=== PATIENT | female | born 1945 | race Caucasian/White ===

== ENCOUNTER 2018-10-06 12:47 | Emergency (ER) | payer OTHER, MEDICAID ==
[~2018-10-06] VITALS: Ht 157.5 cm; Wt 49.0 kg
[2018-10-06 13:03] LABS: URINE BILIRUBIN NEGATIVE (Negative); URINE BLOOD 3+ (Negative); URINE CLARITY CLEAR; URINE COLOR YELLOW; URINE GLUCOSE-RANDOM NEGATIVE (Negative); URINE KETONES NEGATIVE (Negative); URINE LEUKOCYTES-REFLEX 1+ (Negative); URINE PROTEIN 2+ (Negative); URINE SPECIFIC GRAVITY 1.025 (1.005-1.030); URINE UROBILINOGEN 0.2 E.U./dl (0.2-1.0)
[2018-10-06 13:04] LABS: URINE NITRITE-REFLEX POSITIVE (Negative)
[2018-10-06] MEDS ORDERED: PROTONIX40 M2 PO (13:09)
[2018-10-06] MEDS ORDERED: BENICAR20 MG PO (13:09)
[2018-10-06] MEDS ORDERED: TIZANIDINE HCL4 M1 PO (13:09)
[2018-10-06 13:10] LABS: BACTERIA-REFLEX 1-9 Few /HPF (None Seen); SQUAMOUS 0-3 Few /LPF (0-3); URINE RBC 0-2 Rare /HPF (0-2); URINE WBC-REFLEX >25 Many /HPF (0-5)
[2018-10-06] MEDS ORDERED: MECLIZINE HCL12.5 MG PO (13:10)
[2018-10-06 13:11] LABS: CASTS None Seen /LPF (None Seen); CRYSTALS None Seen /LPF (None Seen); MUCUS None Seen strn/LPF (None Seen)
[2018-10-06] MEDS ORDERED: CRESTOR10 MG PO (13:11)
[2018-10-06] MEDS ORDERED: EVISTA PO (13:11)
[2018-10-06] MEDS ORDERED: NORVASC5 MG PO (13:11)
[2018-10-06] MEDS ORDERED: NEURONTIN 300300 M1 PO (13:12)
[2018-10-06] MEDS ORDERED: MOBIC15 MG PO (13:13)
[2018-10-06 13:23] LABS: ABSOLUTE BASOPHILS 0.1 thou/uL (0.0-0.2); ABSOLUTE EOSINOPHILS 0.1 thou/uL (0.0-0.7); ABSOLUTE LYMPHOCYTES 1.7 thou/uL (0.8-5.3); ABSOLUTE MONOCYTES 0.7 thou/uL (0.0-1.2); ABSOLUTE NEUTROPHILS 8.2 thou/uL (1.6-8.1); BASOPHILS 0.9 %; EOSINOPHILS 1.1 %; HEMATOCRIT 41.6 % (37.0-47.0); HEMOGLOBIN 14.2 gm/dL (12.0-15.0); LYMPHOCYTES 15.4 %; MCH 30.1 pg (26.0-34.0); MCV 88.5 fL (80.0-100.0); MONOCYTES 6.1 %; NUCLEATED RBCS 0 /100WBC; PLATELET COUNT* 218 thou/uL (150-400); POLYS 76.5 %; RBC 4.71 mil/uL (4.20-5.00); RDW-CV 13.1 % (10.5-14.5); WBC 10.8 thou/uL (4.0-11.0)
[2018-10-06 13:42] LABS: ALBUMIN 3.8 g/dL (3.4-5.0); CALCIUM 9.7 mg/dL (8.5-10.1); CREATININE 1.1 mg/dL (0.6-1.3); POTASSIUM 3.8 mmol/L (3.5-5.1); TOTAL BILIRUBIN 1.1 mg/dL (<0.1-1.0); TOTAL PROTEIN 7.8 g/dL (6.4-8.2)
[2018-10-06] MEDS ORDERED: NITROFURANTOIN100 MG PO (14:01)
[2018-10-06 14:12] VITALS: BP 166/91
== END 2018-10-06 14:13 | disposition home or self-care (01) ==
LOC: M.ERS 12:47
PROVIDERS: Family Medicine; Nurse Practitioner Psychiatric/Mental Health
DX: N39.0 Urinary tract infection, site not specified (principal); I10 Essential (primary) hypertension; Z88.5 Allergy status to narcotic agent

== ENCOUNTER 2019-10-24 06:37 | Emergency (ER) | payer MEDICARE, MEDICAID ==
[~2019-10-24] VITALS: Ht 157.5 cm; Wt 90.7 kg
[~2019-10-24 06:37] MED LIST: BENICAR20 MG PO; CRESTOR10 MG PO; EVISTA PO; MECLIZINE HCL12.5 MG PO; MOBIC15 MG PO; NEURONTIN 300300 M1 PO; NITROFURANTOIN100 MG PO; NORVASC5 MG PO; PROTONIX40 M2 PO; TIZANIDINE HCL4 M1 PO
[2019-10-24] MEDS ORDERED: FOSAMAX 70 MG T70 MG PO (06:50)
[2019-10-24 08:45] VITALS: BP 140/80
== END 2019-10-24 08:48 | disposition home or self-care (01) ==
LOC: M.ERS 06:37
DX: S20.211A Contusion of right front wall of thorax, initial encounter (principal); I10 Essential (primary) hypertension; E78.00 Pure hypercholesterolemia, unspecified; Z88.5 Allergy status to narcotic agent; W18.39XA Other fall on same level, initial encounter; Y93.89 Activity, other specified; Y92.89 Other specified places as the place of occurrence of the external cause; Y99.8 Other external cause status